=== PATIENT | male | born 1960 | race Caucasian/White ===

== ENCOUNTER 2022-05-12 10:36 | Day surgery (SDC) | payer BC ==
[~2022-05-12 10:36] MED LIST: Lactated Ringers 1,000 ML IV SCH
[2022-05-12] MEDS ORDERED: Lidocaine 2% 5 ML SDV ONE (10:57)
[2022-05-12] MEDS ORDERED: Propofol 200 MG/20 ML SDV ONE ×2 (10:57→12:01)
[2022-05-12] MEDS ORDERED: fentaNYL 100 MCG/2 ML SDV ONE (10:57)
[2022-05-12] MEDS ORDERED: Lactated Ringers 1,000 ML IV SCH (12:30)
== END 2022-05-12 12:58 | disposition home or self-care (01) ==
LOC: MW.SDS 10:36
PROVIDERS: ATTEND Surgery
DX: K63.5 Polyp of colon (principal); K29.50 Unspecified chronic gastritis without bleeding; K20.90 Esophagitis, unspecified without bleeding; K44.9 Diaphragmatic hernia without obstruction or gangrene; K57.30 Diverticulosis of large intestine without perforation or abscess without bleeding; M10.9 Gout, unspecified; E03.9 Hypothyroidism, unspecified; I10 Essential (primary) hypertension; E66.01 Morbid (severe) obesity due to excess calories; Z68.42 Body mass index [BMI] 45.0-49.9, adult; Z79.890 Hormone replacement therapy; Z79.899 Other long term (current) drug therapy; Z88.0 Allergy status to penicillin; Z88.1 Allergy status to other antibiotic agents
CPT/HCPCS: 43239; 45380; J2704; J3010; J7120; J3490